=== PATIENT | male | born 1965 | race Caucasian/White ===

== ENCOUNTER 2022-05-16 17:45 | Emergency (ER) | payer BC ==
[2022-05-16 20:05] VITALS: BP 156/95; PULSE 86
== END 2022-05-16 19:35 | disposition home or self-care (01) ==
LOC: FB.ED 17:45
DX: S46.912A Strain of unspecified muscle, fascia and tendon at shoulder and upper arm level, left arm, initial encounter (principal); W00.0XXA Fall on same level due to ice and snow, initial encounter
CPT/HCPCS: 73030-LT; 99283